=== PATIENT | female | born 1965 | race Caucasian/White ===

== ENCOUNTER → 2025-07-22 09:30 | Outpatient (CLI) | payer OTHER, SELFPAY ==
--- NOTE | 2025-07-22 09:31 | DI.RAD.S_ITS ---
PROCEDURE: XR CHEST 2V INDICATIONS: cough x 4 weeks TECHNIQUE: 2 views of the chest were acquired. COMPARISON: None. FINDINGS: Surgical changes and devices: None. Lungs and pleura: Lungs are clear. No pleural effusions or pneumothorax. Mediastinum: Mediastinal contours are normal. Heart size is normal. Bones and chest wall: No suspicious bony abnormalities. Soft tissues appear unremarkable. IMPRESSION: No acute cardiopulmonary abnormality is seen. Dictated by: Preet Garrido M.D. on 07/22/2025 at 9:45 Approved by: Preet Garrido M.D. on 07/22/2025 at 9:45
== END ==
PROVIDERS: PCP Internal Medicine; Referring Provider Physician Assistant; Visit Provider Physician Assistant
DX: J06.9 Acute upper respiratory infection, unspecified (principal)
CPT/HCPCS: 71046

== ENCOUNTER 2025-07-26 11:22 | Emergency (ER) | payer OTHER, SELFPAY ==
[2025-07-26 11:32] VITALS: BP 117/58; PULSE 68; RESP 16; TEMP 37; O2SAT 99; BMI 21.0
--- NOTE | 2025-07-26 11:50 | ED_ITS ---
HPI - Abdominal Pain General Chief Complaint: Abdominal Pain Stated Complaint: Sent from [facility], For blood testing Time Seen by Provider: 07/26/25 11:42 Source: patient Mode of arrival: Ambulatory History of Present Illness HPI narrative: This is a 59-year-old female presents to the emergency department due to abdominal bloating and right upper quadrant pain after recently starting a course of amoxicillin and azithromycin. She reports some nausea as well. States this is happened with medications in the past. History of cholecystectomy and appendectomy as well as a right ovarian removal. Denies any fevers, diarrhea, or any other concerning signs or symptoms. Related Data Home Medications ?Medication ?Instructions ?Recorded ?Confirmed albuterol sulfate 90 mcg/actuation 2 puff inhalation Q 6H PRN 07/22/25 07/22/25 aerosol inhaler Previous Rx's ?Medication ?Instructions ?Recorded amoxicillin 500 mg tablet 1,000 mg (2 x 500 mg) PO TID 5 07/22/25 days #30 tabs azithromycin 250 mg tablet See Rx Instructions PO .COM PLEX #6 07/22/25 tabs benzonatate 200 mg capsule 200 mg PO TID PRN cough #30 caps 07/22/25 guaifenesin 1,200 mg tablet, 1,200 mg PO Q12H #30 tabs 07/22/25 extended release 12 hr prednisone 20 mg tablet 40 mg (2 x 20 mg) PO QAM #10 tabs 07/22/25 Allergies Allergy/AdvReac Type Severity Reaction Status Date / Time codeine Allergy Verified 07/22/25 08:43 Review of Systems Review of Systems Narrative: GENERAL: Denies chills, fatigue, malaise, fever, sweats. HEENT: Denies sinus pain, ear pain, sore throat, difficulty swallowing, dizziness. RESPIRATORY: Denies dyspnea, cough, wheezing, hemoptysis, sputum. CARDIOVASCULAR: Denies chest pain, palpitations, orthopnea, edema, GASTROINTESTINAL: Reports nausea, right upper quadrant pain, Denies nausea, vomiting, abdominal pain, diarrhea, constipation, melena. : Denies dysuria, frequency, incontinence, hematuria, urinary retention. MUSCULOSKELETAL: denies weakness, joint pain, or bony pain SKIN: Denies rash, skin lesions, or other NEUROLOGIC: Denies weakness, headache, numbness, change in speech, confusion, seizures, incoordination. PSYCHIATRIC: No concerning psychosocial issues. 12 point review of systems is negative except for those stated above Patient History Social History Smoking Status: Former smoker Smoking Status: Former smoker Exam Narrative Exam Narrative: GENERAL: Well-developed patient, in mild distress. HEAD: Atraumatic. Normocephalic. EYES: Pupils equal round and reactive. Extraocular motions intact. No scleral icterus. No injection or drainage. ENT: Nose without bleeding, purulent drainage. Throat without erythema, tonsillar hypertrophy or exudate. Airway patent. NECK: Trachea midline. Non tender EXTREMITIES: No edema or joint tenderness. NEURO: AOx3. SKIN: No rash or erythema of visible areas Abdomen: Right upper quadrant tenderness to palpation, nondistended Initial Vital Signs Initial Vital Signs: Vital Signs Temperature 98.6 F 07/26/25 11:32 Pulse Rate 68 07/26/25 11:32 Respiratory Rate 16 07/26/25 11:32 Blood Pressure 117/58 L 07/26/25 11:32 Pulse Oximetry 99 07/26/25 11:32 Oxygen Delivery Method Room Air 07/26/25 11:32 Course Orders Ordered: ED Orders 07/26/25 12:14 CBC Auto Diff [Complete Blood Count AUTO DIFF] Stat CMP [Comprehensive Metabolic Panel] Stat Lipase Stat Vital Signs Vital signs: Vital Signs - 8 hr 07/26/25 11:32 Temperature 98.6 F Pulse Rate 68 Respiratory Rate 16 Blood Pressure 117/58 L Pulse Oximetry 99 Oxygen Delivery Method Room Air MDM - Abdominal Pain Lab Data 07/26/25 12:14 07/26/25 12:14 Labs: Lab Results 07/26/25 Range/Units 12:14 WBC 8.5 (4.5-11.0) X10^3/uL RBC 4.88 (4.0-5.2) X10^6/uL Hgb 12.9 (12.0-16.0) g/dL Hct 39.8 (36-46) % MCV 81.6 (80-100) fL MCH 26.5 (26-34) PG MCHC 32.4 (30-36) % RDW 15.3 H (11.6-14.8) % Plt Count 229 (150-400) X10^3/uL Neut % (Auto) 44.7 L (50-75) % Lymph % (Auto) 45.2 H (25-40) % [place] % (Auto) 7.6 (3-14) % Eos % (Auto) 1.8 L (2-4) % Baso % (Auto) 0.7 (0-2) % Neut # (Auto) 3800 (4048-2794) /uL Lymph # (Auto) 3800 (3355-2087) /uL [place] # (Auto) 600 (0-900) /uL Eos # (Auto) 200 (0-450) /uL Baso # (Auto) 100 (0-100) /uL Sodium 139 (137-145) mmol/L Potassium 4.6 (3.4-5.1) mmol/L Chloride 104 (98-107) mmol/L Carbon Dioxide 26 (22-32) mmol/L BUN 17 (7-17) mg/dL Creatinine 0.73 (0.52-1.04) mg/dL Estimated GFR > 60 (>60) mL/min BUN/Creatinine Ratio 23.3 H (6-22) Glucose 96 (70-99) mg/dL Calcium 9.3 (8.4-10.2) mg/dL Total Bilirubin 0.4 (0.2-1.3) mg/dL AST 28 (14-36) IU/L ALT 18 (<35) IU/L Alkaline Phosphatase 76 (38-126) U/L Total Protein 8.2 (6.3-8.2) g/dL Albumin 4.8 (3.5-5.0) g/dL Globulin 3.4 (1.7-4.1) g/dL Albumin/Globulin Ratio 1.4 (1.0-2.8) Lipase 53 (23-300) U/L [facility] Narrative Medical decision making narrative: ED course: 59-year-old female presents to the urgent care due to GI discomfort while taking amoxicillin and azithromycin. Suspect this is routine due to antibiotic use. Recommended a probiotic and probiotic. Patient will complete her final dose of medication. Her lab work today was very normal. She had right upper quadrant tenderness but she isn't having gallbladder. All other lab work within normal limits. CC: Abdominal distention Complicating co-morbidities: None Data collected from: Previous notes Medical records reviewed: History of cholecystectomy Differential considered, but not limited to: Transaminitis Exam documented above, pertinent findings include: Tenderness to palpation to right upper quadrant Lab Test results independently reviewed as above. Pertinent findings: Reassuring lab values Imaging studies independently reviewed: None obtained Scores Used: None MIPS Elements: None Consultations: None Treatments: None obtained Re-evaluations: None Discussion: Discussed plan with the patient was comfortable with the plan Diagnosis: Abdominal discomfort secondary to antibiotic use Disposition: see below, along with detailed discharge instructions that have been reviewed with patient as well as indications for ED re-evaluation and additional outpatient follow up Discharge Plan Departure Patient Disposition: Home Clinical Impression: Abdominal discomfort Activity Restrictions/Additional Instructions: Thank you for coming to the [facility] Emergency Department today. Your lab work this is very reassuring. There was no evidence of liver enzyme increases or any other abnormalities. I suspect the discomfort you are feeling as routine due to your antibiotics. I recommended PT and probiotic. Please return to the emergency department if you develop any fevers, severe new or worsening symptoms or any other concerning signs or symptoms. I hope you feel better soon. Please follow up with your primary care provider within a week if your symptoms continue. If you do not have a primary care provider please contact the [facility] Resource line at [phone]. They will ask some questions about your medical history and help you get set up with a provider in the community. Prescriptions: No Action albuterol sulfate 90 mcg/actuation HFA aerosol inhaler 2 puff inhalation Q6H PRN benzonatate 200 mg capsule 200 mg PO TID PRN (Reason: cough) Qty: 30 0RF prednisone 20 mg tablet 40 mg PO QAM Qty: 10 0RF guaifenesin 1,200 mg tablet extended release 12hr 1,200 mg PO Q12H Qty: 30 0RF azithromycin 250 mg tablet See Rx Instructions PO .COMPLEX Qty: 6 0RF Rx Instructions: For 250 mg dose pack: take 500 mg today (day 1), then 250 mg for 4 days (days 2-5) PO amoxicillin 500 mg tablet 1,000 mg PO TID 5 Days Qty: 30 0RF Referrals: Charan Hylton MD [Primary Care Provider, Internal Medicine] Stand Alone Forms: Patient Portal/API
[2025-07-26 12:26] LABS: Add Manual Diff / Slide Review NO; Hematocrit 39.8 % (36-46); Hemoglobin 12.9 g/dL (12.0-16.0); Lymphocytes Absolute Auto 3800 /uL (1100-4500); Mean Corpuscular HGB Conc 32.4 % (30-36); Mean Corpuscular Hemoglobin 26.5 PG (26-34); Mean Corpuscular Volume 81.6 fL (80-100); Platelet Count 229 X10^3/uL (150-400)
[2025-07-26 12:36] LABS: Alanine Aminotransferase 18 IU/L (<35); Albumin 4.8 g/dL (3.5-5.0); Albumin Globulin Ratio 1.4 (1.0-2.8); Alkaline Phosphatase 76 U/L (38-126); Blood Urea Nitrogen 17 mg/dL (7-17); Calcium 9.3 mg/dL (8.4-10.2); Carbon Dioxide 26 mmol/L (22-32); Chloride 104 mmol/L (98-107); Estimated Glomerular Filt Rate > 60 mL/min (>60); Globulin 3.4 g/dL (1.7-4.1); Glucose 96 mg/dL (70-99); HEMOLYSIS < 15 (0-50); Lipase 53 U/L (23-300); Potassium 4.6 mmol/L (3.4-5.1); Sodium 139 mmol/L (137-145); Total Protein 8.2 g/dL (6.3-8.2)
[2025-07-26 13:52] VITALS: BP 114/59; PULSE 71; RESP 17; O2SAT 98
--- OUTSIDE RECORDS SUMMARY | 2025-07-28 15:55 | XMS_ITS | Clinical Summary ---
Author Organization [facility] Address [address] [place] [address] Care Team Providers Care Plant And Maintenance Technician Name Role Phone Pcp, None Selected Primary Care Provider Unavail able Allergies Active Allergy Reactions Criticality Noted Date Comments Codeine Nausea And Vomiting,GI intolerance 0 05/24/2012 Medications No known medications Active Problems No known active problems Immunizations Immunization Administration Dates Next Due FLU PF 6+Mos Quad (Fluzone, FluLaval, Fluarix) 07/10/2022,07/02/2020,06/30/2017,2015 FLU PF 6+Mos Trivalent 0.5ML (Fluzone, FluLaval, Fluarix) 09/07/2019,07/28/2014,09/18/2012 Moderna SARS-CoV-2 Vaccine Monovalent 12/18/2020 ,11/20/2020 [id number] Vaccine 09/12/2021 Tdap (Boostrix,Adacel) 03/17/2018,02/09/2009 Social History Tobacco Use Types Packs/Day Years Used Date Smoking Tobacco: Never Assessed Comments Unknown Sex and Gender Information Value Date Recorded Sex Assigned at Female 09/10/2023 6:37 AM PST Legal Sex Female 1:41 PM PST Gender Identity Female 09/10/2023 6:37 AM PST Sexual Orientation Straight 09/10/2023 6: 37 AM PST Plan of Treatment Health Maintenance Due Date Last Done Comments MMR Vaccines (1 of 1 - Standard series) 1964 Depression Screening (PHQ-2) 1975 Cervical Cancer Screening Combined Topic 1993 Cervical Cancer-Pap screening 1993 HPV/Cotest 1993 Colorectal Cancer Screening (Colonoscopy) 2008 Colorectal Cancer Screening (FOBT) 2008 Colorectal Cancer Screening (Fecal DNA) 2008 Colorectal Cancer Screening Combined 2008 HM Pneumococcal Adult 50+ (1 of 1 - PCV) 2013 Zoster Vaccines (1 of 2) 2013 Breast Cancer Screening 03/18/2015 03/18/2013 COVID-19 Vaccine (4 - season) 2025 09/12/2021, 12/18/2020, 11/20/2020 Influenza Vaccine (#1) 2025 2, 07/02/2020, 09/07/2019, Additional history exists DTaP,Tdap,and Td Vaccines (3 - Td or Tdap) 03/17/2028 03/17/2018, 02/09/2009 RSV Patients Over 60 years OR qualifying ( Patients) (1 - 1-dose 75+ series) 2038 HPV Vaccines Aged Out No longer eligi ble based on patient's age to complete this topic Hepatitis A Vaccines Aged Out No long er eligible based on patient's age to complete this topic Hepatitis B Vaccines Aged Out No long er eligible based on patient's age to complete this topic IPV Vaccines Aged Out No longer eligi ble based on patient's age to complete this topic Insurance [facility] Care Teams Plant And Maintenance Technician Relationship Specialty Start Date End Date Pcp, None Selected PCP - General Internal Medicine 09/22/22
--- OUTSIDE RECORDS SUMMARY | 2025-07-28 15:56 | XMS_ITS | Clinical Summary ---
Author Organization [facility] Address [facility] [place] [address] Care Team Providers Care Block Feeder Name Role Phone Aziza Brown MD Primary Care Provider [phone] Carlos Bruner MD Unavailable [phone] Allergies Active Allergy Reactions Criticality Noted Date Comments Codeine Nausea/Vomiting,Unknown Low 05/24/2012 GI intolerance Medications amphetamine-dex troamphetamine (ADDERALL) 5 MG Tab 01/08/2024 Active magnesium carbonate (MAGONATE, 54 MG/5 ML MAG EQUIVALENT,) 54 (Mag Equiv) MG/5ML Liquid Take by mouth. Active Vitamin D3 (CHOLECALCIFERO L) 50 MCG (1999 UT) Chew Tab Chew and swallow by mouth. Active Phytonadione (VITAMIN K OR) Inject as directed. Active Active Problems Problem Noted Date Diagnosed Date History of Helicobacter pylori infection 024 Epigastric pain 03/22/2024 Nausea 03/22/2024 Bloating 03/22/2024 Family History Medical History Relation Name Comments Colon Cancer No FHX Social History Tobacco Use Types Packs/Day Years Used Date Smoking Tobacco: Never Smokeless Tobacco: Never Tobacco Cessation:Counseling Given: Not Answered Alcohol Use Standard Drinks/Week Comments Never 0 (1 standard drink = 0.6 oz pur e alcohol) Comments Unknown Sex and Gender Information Value Date Recorded Sex Assigned at Not on file Legal Sex Female 12:53 PM PDT Gender Identity Not on file Sexual Orientation Not on file Last Filed Vital Signs Vital Sign Reading Time Taken Comments Blood Pressure 116/70 03/22/2024 10:00 AM PDT Pulse 62 03/22/2024 10:00 AM PDT Temperature - - Respiratory Rate - - Oxygen Saturation 99% 03/22/2024 10:00 AM PDT Inhaled Oxygen Concentration - - Weight 52.6 kg (116 lb) 03/22/2024 10:00 AM PDT Height 157.5 cm (5' 2) 03/22/2024 10:00 AM PDT Body Mass Index 21.22 03/22/2024 10:00 AM PDT Plan of Treatment Health Maintenance Due Date Last Done Comments CT Colonography 1963 Colon Cancer Screening 1963 Colonoscopy 1963 FIT Yearly 1963 FIT-DNA 1963 FOBT 1963 Sigmoidoscopy 1963 Depression Screening 1963 SCRN: FOR HIV USPSTF ROUTINE (15-65 YEARS) 1978 [facility] SCRN: HIV-UNIVERSAL SCRN 1978 SCRN: FOR HEPATITIS C ROUTINE (18-79 Years) 1981 Pap Smear 1984 Cervical Cancer Screening 1993 HPV + Pap Cotesting 1993 SCRN: FOR HYPERLIPIDEMIA (ADULT) 2003 IMM: Pneumococcal Vaccine (1 of 1 - PCV) 2013 Breast Cancer Screening (Mammogram) 03/18/2015 03/18/2013, 03/18/2013 IMM: INFLUENZA (AGE > 6 MONTHS) (#1) 05/08/2025 07/10/2022, 07/10/2022, 07/02/2020, Additional history exists IMM: DTAP/TDAP/TD (3 - Td or Tdap) 03/17/2028 03/17/2018, 02/09/2009 IMM: RSV ( patients and Patients AGE > 60 YEARS OLD) (1 - 1-dose 75+ series) 2038 SCRN: FOR BREAST CA Q2Y AGE 55-74 YEARS (DEFAULT) Discontinued 03/18/2013 SCRN: FOR BREAST CA Q2Y USPSTF AGE 50-74 YEARS Discontinued 03/18/2013 IMM: SHINGRIX Completed 01/20/2024, 10/28/2023 IMM: HEPATITIS A Aged Out No longer e ligible based on patient's age to complete this topic IMM: HEPATITIS B Aged Out No longer e ligible based on patient's age to complete this topic IMM: MENINGOCOCCAL ACWY Aged Out No l onger eligible based on patient's age to complete this topic IMM: RSV (AGE < 20 MONTHS) Aged Out N o longer eligible based on patient's age to complete this topic Insurance [facility] Care Teams Block Feeder Relationship Specialty Start Date End Date Aziza Brown MD PCP - General Internal Medicine 11/17/23 Carlos Bruner MD [id number] [place] [id number] Gastroenterology 03/23/24
--- OUTSIDE RECORDS SUMMARY | 2025-07-28 16:07 | XMS_ITS | Clinical Summary ---
Author Organization [facility] Address [address] [place] [address] Phone Care Team Providers Care Financial Reporting Specialist Name Role Phone Aziza Brown MD Primary Care Provider Mychart, Generic Provider Unavailable Alida Brock MD Unavailable Sixto Stringer MD Unavailable Un available Pcp, Non Established Unavailable Unavailable Allergies Active Allergy Reactions Criticality Noted Date Comments Banana Adverse Drug Reaction Low 02/10/2014 Codeine Unknown Low 05/24/2012 Medications amphetamine-dextro amphetamine (Adderall) 5 MG tab 12/06/2021 Active Hospital, Clinic, or Other Facility Administered Medication Ordered Dose Route Frequency Start Date End Date Status zoledronic acid (Reclast) 5 MG/100ML IVPB 5 mgIndications:Osteoporosis, post-menopausal 5 mg IV PRN 01/16/2025 Active Active Problems Problem Noted Date Diagnosed Date Carpal tunnel syndrome 10/28/2023 Overview (10/28/2023): S/p surgery Gastritis and gastroduodenitis 10/28/2023 Overview (10/28/2023): Problem List Transmission Builder Utility Osteoporosis 10/28/2023 H. pylori infection 10/28/2023 Hyperlipidemia 10/28/2023 ADD (attention deficit disorder) 10/28/2023 Primary insomnia 10/28/2023 Vitamin D deficiency 10/28/2023 HSV (herpes simplex virus) anogenital infection 03/14/2013 Overview (10/28/2023): No suppression Resolved Problems Problem Noted Date Diagnosed Date Resolved Date Synovitis and tenosynovitis 10/28/2023 10/28/2023 Closed nondisplaced fracture of proximal phalanx of left great toe 01/17/2020 10/28/2023 Encounters Date Type Department Care Team Description 05/04/2025 9:45 AM PDT Office Visit [facility] [address] [place] [address] Alida Pickard MD Cervicalgia (Primary Dx); Age related osteoporosis, unspecified pathological fracture presence 05/04/2025 9:20 AM PDT Ancillary Procedure [facility] [address] [place] [address] Alida Pickard MD Osteoporosis, post-menopausal from Last 3 Months Immunizations Immunization Administration Dates Next Due INFLUENZA (FLUZONE) INACTIVA VIRA 4V IIV (SD-IIV4) PF 0.5ML (6mo-18yrs) State 07/10/2022,07/02/2020,06/30/2017,2015 Influenza Unspecified (Historical) 07/10,07/02/2020,09/07/2019,2016,07/07/2016,07/28/2014,09/18/2012 Influenza Vaccine - STATE, 6 -35mo, T-Free (Flu Clinic) 09/07/2019,07/28/2014,09/18/2012 Influenza Vaccine Intraderma l (Historical) 09/18/2012 TDAP Vaccine 03/17/2018,02/09/2009 Zoster Vaccine Recombinant Adjuvanated (Shingrix) 01/20/2024,10/28/2023 Family History Medical History Relation Name Comments Alcoholism Brother Jona Alzheimer Mother Pili Dementia Mother Pili High Cholesterol Mother Pili Alcohol abuse Other 1 Heart Other 2 Cancer, Other Other 3 Ovarian cancer Diabetes Other 4 Hyperlipidemia Other 5 Hypertension Other 6 Hypertension Other 7 Relation Name Status Comments Brother Jona Alive Father Other Mother Pili Alive Other 1 Other 2 Other 3 Other 4 Other 5 Other 6 Other 7 Social History Tobacco Use Types Packs/Day Years Used Date Smoking Tobacco: Former Cigarettes Q uit: 09/07/1980 Smokeless Tobacco: Never Comments:social smoker from [age] Alcohol Use Standard Drinks/Week Comments Yes 0 (1 standard drink = 0.6 oz pur e alcohol) 3-4 times a year Comments No Sex and Gender Information Value Date Recorded Sex Assigned at Not on file Legal Sex Female 11:36 AM PDT Gender Identity Not on file Sexual Orientation Not on file Last Filed Vital Signs Vital Sign Reading Time Taken Comments Blood Pressure 100/70 05/04/2025 9:55 AM PDT Pulse 60 05/04/2025 9:55 AM PDT Temperature 36.6 C (97.8 F) 10/28/2023 8:12 AM PST Respiratory Rate 16 10/28/2023 8:12 AM PST Oxygen Saturation - - Inhaled Oxygen Concentration - - Weight 54 kg (119 lb) 05/04/2025 9:55 AM PDT Height 160 cm (5' 3) 01/20/2024 9:06 AM PDT Body Mass Index 21.08 01/20/2024 9:06 AM PDT Plan of Treatment Upcoming Encounters Date Type Department Care Team (Late st Contact Info) Description 10/04/2025 9:25 AM PST Office Visit [facility] [address] [place] [address] Alida Pickard MD [address] [place] [address] Health Maintenance Due Date Last Done Comments CT Colonography 2008 FIT (Fecal Blood Test) 2008 FIT-DNA (Cologuard) 2008 Flex Sigmoidoscopy 2008 Pneumococcal Vaccine age 50+ (1 of 1 - PCV) 2013 Mammogram 03/18/2015 03/18/2013, 03/18/2013 Colonoscopy 03/07/2024 03/07/2014 (Comp leted Outside of Organization) Colorectal Cancer Screening 03/07/2024 Depression Screening 10/28/2024 10/28/2023 COVID-19 Vaccine ( season) 2025 09/12/2021, 12/18/2020, 11/20/2020 Influenza Vaccine (#1) 2025 2, 07/10/2022, 07/02/2020, Additional history exists DTaP/Td/Tdap Vaccines (3 - Td or Tdap) 03/17/2028 03/17/2018, 02/09/2009 Lipid Panel 10/28/2028 10/28/2023, 01/06, 11/23/2007 Pap Smear 01/19/2029 01/20/2024, 03/08 (Completed Outside of Organization), 06/09/2016 (Completed Outside of Organization) RSV Vaccine (1 - 1-dose 75+ series) 2038 HIV Screening Completed 09/07/2009 (Comp leted Outside of Organization) Hepatitis C Screening Completed 09/07/2009 (Completed Outside of Organization) Zoster Vaccine Completed 01/20/2024, 10/28/2023 HPV Vaccines Aged Out No longer eligi ble based on patient's age to complete this topic Hepatitis B Vaccines Aged Out No long er eligible based on patient's age to complete this topic Procedures Procedure Name Priority Date/Time Associated Diagnosis Comments CHG ASSAY PHOSPHORUS Routine 05/04/2025 10:53 AM PDT Age related osteoporosis, unspecified pathological fracture presence DEXASCAN (DEXA) Routine 05/04/2025 9:27 AM PDT Osteoporosis, post-menopausal PAP & HPV W/ REFLEX GENOTYPING Routine 01/20/2024 Routine general medical examination at a health care facility CHG LIPID PANEL Routine 10/28/2023 9:24 AM PST Hyperlipidemia, unspecified hyperlipidemia type from Last 3 Months or Most Recently Relevant to Health Maintenance Results * PHOSPHORUS (05/04/2025 10:53 AM PDT) Phosphorus 3.9 2.5 - 4.5 mg/dL [facility] 05/04/2025 10:5 3 AM PDT 05/04/2025 1:07 PM PDT Narrative [facility] - 05/04/2025 1:28 PM PDT Non-fasting patient us Alida Pickard MD CHEMISTRY ORDERABLES Final Resu lt [facility] [address] [place] [address] * DEXASCAN (DEXA) (05/04/2025 9:27 AM PDT) Anatomical Region Laterality Modality Dexascan Other 05/04/2025 9:15 AM PDT Narrative 05/04/2025 1:08 PM PDT CLINICAL INDICATION: osteoporosis DATE: 05/04/2025 9:15 AM PROCEDURE: BMD of the spine and bilateral hips was performed on a I-DXA machine. Technical quality of the study is good. FINDINGS: T-Score Z-Score Lumbar spine -4.1 -2.5 Femoral neck -2.8 -1.3 Total hip -2.6 -1.4 IMPRESSION: Based on the WHO classification, the patient has osteoporosis. Evaluation for secondary causes of osteoporosis should be considered if clinically indicated. RECOMMENDATIONS: Treated patients: 1-2 years after starting or changing therapy, then every 1-2 years until BMD is stable (ISCD 2013 and AACE 2010 guidelines) Untreated, postmenopausal women: use baseline T-scores to determine follow up interval ([facility] 2012, [phone]): -15 years: T-score > -1.5 -5 years: T-score -1.5 to -1.99 -1-2 years: T-score < -2.0 All others: follow up varies depending on individual risk factors. Note that the suggested intervals may change depending on an individuals clinical situation, including history of previous fracture, advanced age, medication use, and associated medication conditions. The National Osteoporosis Foundation recommends initiating therapy if the lowest T score is less than -2 or less than -1.5 and other risks are present. DEFINITIONS: T score is the number of standard deviations (SD) above (+) or below (-) the mean bone density in a young, normal, sex-matched population. Z-score is the number of standard deviations (SD) above (+) or below (-) the mean bone density in a normal, sex and age match population. Bone Density World Health Organization (WHO) Criteria Normal = T score at or above -1. Osteopenia = T score between -1 and -2.5. Osteoporosis = T score at or below -2.5. Severe osteoporosis = T score less than -2.5 and the presence of an osteoporotic fracture. Fracture Risk: This increases with decreasing bone density, but is variable with each individual. Procedure Note Tc Barber MD - 05/04/2025 CLINICAL INDICATION: osteoporosis DATE: 05/04/2025 9:15 AM PROCEDURE: BMD of the spine and bilateral hips was performed on a I-DXAmachine. Technical quality of the study is good. FINDINGS: T-Score Z-Score Lumbar spine -4.1 -2.5 Femoral neck -2.8 -1.3 Total hip -2.6 -1.4 IMPRESSION: Based on the WHO classification, the patient hasosteoporosis. Evaluation for secondary causes of osteoporosis should be considered ifclinically indicated. RECOMMENDATIONS: Treated patients: 1-2 years after starting or changing therapy, thenevery 1-2 years until BMD is stable (ISCD 2013 and AACE 2010 guidelines) Untreated, postmenopausal women: use baseline T-scores to determine followup interval ([facility] 2012, [phone]): -15 years: T-score > -1.5 -5 years: T-score -1.5 to -1.99 -1-2 years: T-score < -2.0 All others: follow up varies depending on individual risk factors. Note that the suggested intervals may change depending on an individualsclinical situation, including history of previous fracture, advanced age,medication use, and associated medication conditions. The National Osteoporosis Foundation recommends initiating therapy if thelowest T score is less than -2 or less than -1.5 and other risks arepresent. DEFINITIONS: T score is the number of standard deviations (SD) above (+) or below (-)the mean bone density in a young, normal, sex-matched population. Z-score is the number of standard deviations (SD) above (+) or below (-)the mean bone density in a normal, sex and age match population. Bone Density World Health Organization (WHO) Criteria Normal = T score at or above -1. Osteopenia = T score between -1 and -2.5. Osteoporosis = T score at or below -2.5. Severe osteoporosis = T score less than -2.5 and the presence of anosteoporotic fracture. Fracture Risk: This increases with decreasing bone density, but isvariable with each individual. Alida Pickard MD IMAGING - OTHER Final Result * PAP W/HPV NILM REFLEX GENOTYPING 30-65YRS (01/20/2024) Cervical 01/20/2024 01/21/2024 Impressions [facility] - 01/26/2024 12:12 PM PDT CASE: [id number] PATIENT: Awa De La Garza PAP INTERPRETATION: NEGATIVE FOR INTRAEPITHELIAL LESION OR MALIGNANCY. Atrophic changes. SPECIMEN ADEQUACY: Satisfactory for evaluation. Scant cellularity. NOTES: Two slides prepared and screened. ThinPrep specimen imaged unsuccessfully requiring manual screening. [ThinPrep Senior Human Resources Representative [employer], [place], [place]] MOLECULAR RESULTS NEGATIVE for High Risk HPV. This test is FDA-approved for the Debbie Lloyd 4800 platform using ThinPrep(TM) vials. This assay is a qualitative test that utilizes amplification of target DNA by Polymerase Chain Reaction (PCR) and nucleic acid hybridization for the detection of 14 HPV high risk types (16,18,31,33,35,39,45,51,52,56,58,59,66 and 68). This test is used for clinical purposes. This laboratory is regulated under the 1988 CLIA amendments as qualified to perform high-complexity clinical testing. SPECIMEN DESCRIPTION: ThinPrep Imaged Liquid Pap Test SPECIMEN SOURCE: Cervical CLINICAL INFORMATION: Menopausal/Postmenopause DATE OF LAST MENSTRUAL PERIOD: Not given Rylie Saldana CT(ASCP). Electronically signed 01/26/2024 11:50 Performed at [facility], [address] [place] [address], CLIA#: [id number] Cad Librarian: Ramirez Amador MD, PhD Date TRUCK SERVICE MANAGER Interp. HPV Result 03/14/2013 NILM HPV- 02/27/2009 Aziza Brown MD PATHOLOGY/CYTOLOGY ORDERABLES F inal Result [employer] [address] * (ABNORMAL) LIPID PANEL (10/28/2023 9:24 AM PST) Triglycerides 48 30 - 200 mg/dL [facility] Comment: Adult: < 150 Desirable 150-199 Borderline High 200-499 High >= 500 Very High Pediatric 2-17 years < 90 Desirable 90-129 Borderline High >= 130 High Cholesterol 235(H) 150 - 220 mg/dL [facility] Comment: < 200 Desirable 200-239 Borderline High >= 240 High Risk HDL Cholesterol 100 mg/dL [facility] Comment: Male: >=60 Less than Average Risk of Coronary Disease 40-59 Average Risk of Coronary Disease <40 Increased Risk of Coronary Disease Female: >=60 Less than Average Risk of Coronary Disease 50-59 Average Risk of Coronary Disease <50 Increased Risk of Coronary Disease LDL Cholesterol 125 3 - 130 mg/dL [facility] Comment: < 100 Optimal 100-129 Near Optimal, Above Optimal 130-159 Borderline High 160-189 High >= 190 Very High Chol/HDL 2.4 0.0 - 5.0 [facility] LDL/HDL 1.2 0.0 - 3.0 [facility] 10/28/2023 9:24 AM PST 10/28/2023 8:19 PM PST Narrative [facility] - 11/08/2023 2:04 PM PST LAB: [facility] Non-fasting patient us Aziza Brown MD CHEMISTRY ORDERABLES Final Resu lt [facility] [address] [place] [phone] from Last 3 Months or Most Recently Relevant to Health Maintenance Insurance [facility] Care Teams Financial Reporting Specialist Relationship Specialty Start Date End Date Aziza Brown MD [address] [place] [id number] PCP - General Internal Medicine 08/10/23 Mychart, Generic Provider unknown 10/29/23 Alida Pickard MD [address] [place] [address] Rheumatology 01/18/24 Sixto Stringer MD [address] [place] [address] Endocrinology 02/03/24 Pcp, Non Established 01/24/25
--- OUTSIDE RECORDS SUMMARY | 2025-07-28 16:07 | XMS_ITS | Encounter Summary ---
Author Organization [facility] Address [address] [place] [address] Phone Care Team Providers Care Laboratory Administrative Director Name Role Phone Aziza Brown MD Primary Care Provider [phone] Mychart, Generic Provider Unavailable Alida Brock MD Unavailable [phone] Sixto Stringer MD Unavailable Un available Pcp, Non Established Unavailable Unavailable Encounter Details Date Type Department Care Team (Late st Contact Info) Description 03/07/2014 History Erroneous Encounter [facility] Provider, Conversion Social History Tobacco Use Types Packs/Day Years Used Date Smoking Tobacco: Former Comments Unknown Sex and Gender Information Value Date Recorded Sex Assigned at Not on file Legal Sex Female 11:36 AM PDT Gender Identity Not on file Sexual Orientation Not on file documented as of this encounter Plan of Treatment Upcoming Encounters Date Type Department Care Team (Late Contact Info) Description 10/04/2025 9:25 AM PST Office Visit [facility] [address] [place], [place] [id number] Alida Pickard MD [address] [place] [address] documented as of this encounter Visit Diagnoses Not on filedocumented in this encounter Care Teams Laboratory Administrative Director Relationship Specialty Start Date End Date Aziza Brown MD [address] [place] [address] [place] [address] PCP - General Internal Medicine 08/10/23 Mychart, Generic Provider unknown 10/29/23 Alida Pickard MD [address] [place] [address] Rheumatology 01/18/24 Sixto Stringer MD [address] [place] [phone] Endocrinology 02/03/24 Pcp, Non Established 01/24/25 documented as of this encounter
== END 2025-07-26 13:54 | disposition home or self-care (01) ==
PROVIDERS: Emergency Provider Physician Assistant Medical; PCP Internal Medicine
DX: R10.31 Right lower quadrant pain (principal)
CPT/HCPCS: 36415; 80053; 83690; 85025; 99281; 99283

== ENCOUNTER → 2025-08-23 09:24 | Outpatient (CLI) | payer OTHER, SELFPAY ==
[2025-08-23 10:20] LABS: Hematocrit 38.0 % (36-46); Hemoglobin 12.6 g/dL (12.0-16.0); Mean Corpuscular HGB Conc 33.2 % (30-36); Mean Corpuscular Hemoglobin 27.3 PG (26-34); Mean Corpuscular Volume 82.3 fL (80-100); Platelet Count 208 X10^3/uL (150-400)
[2025-08-23 11:04] LABS: Alanine Aminotransferase 23 IU/L (<35); Albumin 4.7 g/dL (3.5-5.0); Albumin Globulin Ratio 1.6 (1.0-2.8); Alkaline Phosphatase 66 U/L (38-126); Blood Urea Nitrogen 18 mg/dL (7-17); Calcium 9.3 mg/dL (8.4-10.2); Carbon Dioxide 28 mmol/L (22-32); Chloride 106 mmol/L (98-107); Cholesterol 274 mg/dL (140-199); Estimated Glomerular Filt Rate > 60 mL/min (>60); Globulin 2.9 g/dL (1.7-4.1); Glucose 90 mg/dL (70-99); HDL Cholesterol 107 mg/dL (40-60); HEMOLYSIS < 15 (0-50); Potassium 4.7 mmol/L (3.4-5.1); Sodium 141 mmol/L (137-145); Total Protein 7.6 g/dL (6.3-8.2); Triglycerides 41 mg/dL (35-150)
[2025-08-23 11:19] LABS: Vitamin D 25 Hydroxy (D3) 24.2 ng/mL (30.0-100.0)
[2025-08-23 11:28] LABS: TSH w/ Reflex to FT4 1.16 uIU/mL (0.47-4.68)
[2025-08-24 12:36] LABS: Calcium 9.5 mg/dL (8.7-10.3); Parathyroid Hormone, Intact 37 pg/mL (15-65)
== END ==
PROVIDERS: PCP Internal Medicine; Referring Provider Internal Medicine; Visit Provider Internal Medicine
DX: M81.0 Age-related osteoporosis without current pathological fracture (principal); E78.2 Mixed hyperlipidemia; E21.3 Hyperparathyroidism, unspecified
CPT/HCPCS: 36415; 80053; 80061; 82306; 82310; 83970; 84443; 85027

== ENCOUNTER → 2025-08-25 11:48 | Outpatient (CLI) | payer OTHER, SELFPAY ==
[2025-08-27 17:11] LABS: H. Pylori Antigen Stool Negative (Negative)
== END ==
PROVIDERS: PCP Internal Medicine; Referring Provider Internal Medicine; Visit Provider Internal Medicine
DX: A04.8 Other specified bacterial intestinal infections (principal)
CPT/HCPCS: 87338